=== PATIENT | female | born 1955 | race Caucasian/White ===

== ENCOUNTER 2018-07-02 13:38 | Inpatient (IN) ==
[2018-07-02 15:32] LABS: Basophils # 0.1 10*3/uL (0.0-0.2); Basophils % 0.7 % (0.0-0.8); Eosinophils # 0.2 10*3/uL (0.0-0.87); Eosinophils % 3.1 % (0.00-10.9); Hemoglobin 10.4 GM/DL (12.0-16.0); Immature Granulocytes % 0.6 %; Immature Granulocytes Absolute 0.04 #; Lymphocytes # 1.4 10*3/uL (1.4-4.0); Lymphocytes % 20.7 % (21.3-54.2); Mean Corpuscular HGB Conc 29.7 GM/DL (32-36); Mean Corpuscular Hemoglobin 27 PG (27-34); Mean Corpuscular Volume 92.1 FL (87-102); Mean Platelet Volume 9.5 FL (9.6-12.0); Monocytes # 0.6 10*3/uL (0.11-0.8); Monocytes % 8.3 % (1.7-12.7); Neutrophils # 4.6 10*3/uL (1.4-7.4); Neutrophils % 66.6 % (38.7-73.9); Platelet Count 248 T/CUMM (130-400); Red Cell Distribution Width 14.8 % (9.3-17.3); White Blood Count 6.9 T/CUMM (4-12)
[2018-07-02 15:50] LABS: Calcium 9.1 MG/DL (8.5-10.1); Osmolality,Calculated 294.1 MOS/KG (273-304)
[2018-07-02] MEDS ORDERED: LACTULOSE 20 GM/30 ML UDCUP PO PRN (18:49)
[2018-07-02] MEDS ORDERED: DOCUSATE SODIUM 100 MG CAPSULE PO PRN (18:49)
[2018-07-02] MEDS ORDERED: traZODone 50 MG TABLET PO PRN (18:49)
[2018-07-02] MEDS ORDERED: DEXTROSE 50% 25 GM/50 ML VIAL IV PRN (18:49)
[2018-07-02] MEDS ORDERED: ACETAMINOPHEN 325 MG TABLET PO PRN (18:49)
[2018-07-02] MEDS ORDERED: GLUCAGON 1 MG VIAL IM PRN (18:49)
[2018-07-02] MEDS ORDERED: ONDANSETRON 4 MG/2 ML VIAL IV PRN (18:49)
[2018-07-02] MEDS ORDERED: NITROGLYCERIN SL 0.4 MG TABLET SL PRN (18:53)
[2018-07-02] MEDS: FUROSEMIDE 40 MG/4 ML VIAL IV SCH (21:46)
[2018-07-02] MEDS: GLIMEPIRIDE 2 MG TABLET PO SCH (21:48)
[2018-07-02] MEDS: INSULIN LISPRO 100 UNIT/ML SUBCUT SCH (21:48)
[2018-07-02] MEDS: ceFAZolin 1,000 MG in SYRINGE 1 EACH IV SCH (21:48)
[2018-07-02] MEDS: AMIODARONE 200 MG TABLET PO SCH (21:48)
[2018-07-03] MEDS: ceFAZolin 1,000 MG in SYRINGE 1 EACH IV SCH ×3 (05:09→21:01)
[2018-07-03 05:36] LABS: Basophils % 0.6 % (0.0-0.8); Eosinophils # 0.2 10*3/uL (0.0-0.87); Eosinophils % 2.4 % (0.00-10.9); Hematocrit 32.1 VOL% (35.7-47.0); Hemoglobin 9.6 GM/DL (12.0-16.0); Immature Granulocytes % 0.5 %; Immature Granulocytes Absolute 0.03 #; Lymphocytes # 1.3 10*3/uL (1.4-4.0); Lymphocytes % 20.1 % (21.3-54.2); Mean Corpuscular HGB Conc 29.9 GM/DL (32-36); Mean Corpuscular Hemoglobin 27 PG (27-34); Mean Corpuscular Volume 91.7 FL (87-102); Monocytes # 0.6 10*3/uL (0.11-0.8); Monocytes % 9.1 % (1.7-12.7); Neutrophils # 4.5 10*3/uL (1.4-7.4); Neutrophils % 67.3 % (38.7-73.9); Platelet Count 231 T/CUMM (130-400); Red Cell Distribution Width 14.8 % (9.3-17.3); White Blood Count 6.6 T/CUMM (4-12)
[2018-07-03 06:24] LABS: Calcium 8.8 MG/DL (8.5-10.1); Osmolality,Calculated 285.1 MOS/KG (273-304); Potassium 3.9 MMOL/L (3.5-5.1); Thyroid Stimulating Hormone 2.06 uIU/ml (0.358-3.74)
[2018-07-03] MEDS ORDERED: ENOXAPARIN 40 MG/0.4 ML SYRINGE SUBCUT SCH (09:00)
[2018-07-03] MEDS: RIVAROXABAN 20 MG TABLET PO SCH (09:45)
[2018-07-03] MEDS: ROSUVASTATIN 10 MG TABLET PO SCH (09:45)
[2018-07-03] MEDS: GLIMEPIRIDE 2 MG TABLET PO SCH ×2 (09:45→21:01)
[2018-07-03] MEDS: LISINOPRIL 10 MG TABLET PO SCH (09:45)
[2018-07-03] MEDS: AMIODARONE 200 MG TABLET PO SCH ×2 (09:45→21:01)
[2018-07-03] MEDS: ASPIRIN EC 81 MG TABLET PO SCH (09:45)
[2018-07-03] MEDS: FUROSEMIDE 40 MG/4 ML VIAL IV SCH ×2 (09:45→21:01)
[2018-07-03] MEDS: CHOLECALCIFEROL 1,000 UNIT TABLET PO SCH (09:49)
[2018-07-03] MEDS: INSULIN LISPRO 100 UNIT/ML SUBCUT SCH ×3 (12:47→16:18)
[2018-07-03] MEDS: INSULIN GLARGINE 100 UNIT/ML SUBCUT SCH (12:48)
[2018-07-04] MEDS: INSULIN LISPRO 100 UNIT/ML SUBCUT SCH ×3 (01:21→11:21)
[2018-07-04] MEDS: ceFAZolin 1,000 MG in SYRINGE 1 EACH IV SCH ×2 (04:53→14:11)
[2018-07-04] MEDS: AMIODARONE 200 MG TABLET PO SCH (08:11)
[2018-07-04] MEDS: LISINOPRIL 10 MG TABLET PO SCH (08:11)
[2018-07-04] MEDS: FUROSEMIDE 40 MG/4 ML VIAL IV SCH (08:11)
[2018-07-04] MEDS: CHOLECALCIFEROL 1,000 UNIT TABLET PO SCH (08:11)
[2018-07-04] MEDS: ASPIRIN EC 81 MG TABLET PO SCH (08:11)
[2018-07-04] MEDS: RIVAROXABAN 20 MG TABLET PO SCH (08:11)
[2018-07-04] MEDS: GLIMEPIRIDE 2 MG TABLET PO SCH (08:11)
[2018-07-04] MEDS: ROSUVASTATIN 10 MG TABLET PO SCH (08:11)
[2018-07-04] MEDS: INSULIN GLARGINE 100 UNIT/ML SUBCUT SCH (10:15)
[2018-07-04 16:30] VITALS: BP 146/66
== END 2018-07-04 16:39 | disposition home or self-care (01) | DRG 602 ==
LOC: N.ED 13:38 → N.EDINP 18:49 → N.5E 19:46
PROVIDERS: ADMIT Hospitalist; ATTEND Hospitalist

== ENCOUNTER 2020-03-09 14:05 | Inpatient (IN) ==
[2020-03-09 15:27] LABS: Basophils # 0.1 10*3/uL (0.0-0.2); Basophils % 1.1 % (0.0-0.8); Eosinophils # 0.1 10*3/uL (0.0-0.87); Eosinophils % 1.7 % (0.00-10.9); Hemoglobin 10.1 GM/DL (12.0-16.0); Immature Granulocytes % 0.6 %; Immature Granulocytes Absolute 0.03 #; Lymphocytes # 0.8 10*3/uL (1.4-4.0); Lymphocytes % 15.9 % (21.3-54.2); Mean Corpuscular HGB Conc 30.6 GM/DL (32-36); Mean Corpuscular Volume 85.7 FL (87-102); Monocytes % 8.8 % (1.7-12.7); Neutrophils % 71.9 % (38.7-73.9); Platelet Count 208 T/CUMM (130-400); Red Blood Count 3.85 MC/CUMM (3.8-5.5); Red Cell Distribution Width 15.1 % (9.3-17.3); White Blood Count 5.2 T/CUMM (4-12)
[2020-03-09 15:39] LABS: Calcium 8.6 MG/DL (8.5-10.1); Osmolality,Calculated 282.1 MOS/KG (273-304)
[2020-03-09] MEDS ORDERED: SIMETHICONE CHEW 125 MG TABLET PO PRN (16:15)
[2020-03-09] MEDS ORDERED: diphenhydrAMINE CAP 25 MG CAPSULE PO PRN (16:15)
[2020-03-09] MEDS ORDERED: guaiFENesin/DM ER 600-30 MG TABLET PO PRN (16:15)
[2020-03-09] MEDS ORDERED: NICOTINE 21 MG/24 HR PATCH TRANSDERM PRN (16:15)
[2020-03-09] MEDS ORDERED: CALCIUM CARBONATE CHEW 500 MG TABLET PO PRN (16:15)
[2020-03-09] MEDS ORDERED: ALUMINUM/MAGNES/SIMETH MAX STR 30 ML UDCUP PO PRN (16:15)
[2020-03-09] MEDS ORDERED: PROMETHAZINE 25 MG/1 ML VIAL IM PRN (16:15)
[2020-03-09] MEDS ORDERED: ACETAMINOPHEN 325 MG TABLET PO PRN (16:15)
[2020-03-09] MEDS ORDERED: MORPHINE 4 MG/1 ML VIAL IV PRN (16:15)
[2020-03-09] MEDS ORDERED: GLUCAGON 1 MG VIAL IM PRN (16:15)
[2020-03-09] MEDS ORDERED: DEXTROSE 50% 25 GM/50 ML VIAL IV PRN (16:15)
[2020-03-09] MEDS ORDERED: ZALEPLON 5 MG CAPSULE PO PRN (16:15)
[2020-03-09] MEDS ORDERED: ALBUTEROL 2.5 MG/3 ML NEB RESP TX PRN (16:15)
[2020-03-09] MEDS ORDERED: NITROGLYCERIN SL 0.4 MG TABLET SL PRN (16:19)
[2020-03-09 16:45] LABS: INR 1.7; Partial Thromboplastin Time 38.3 SECS (23.9-33.8)
[2020-03-09] MEDS: INSULIN LISPRO 100 UNIT/ML SUBCUT SCH ×2 (18:04→21:46)
[2020-03-09] MEDS: SODIUM CHLORIDE 0.9% 1,000 ML IV SCH (18:24)
[2020-03-09] MEDS: DOCUSATE SODIUM 100 MG CAPSULE PO SCH (21:45)
[2020-03-09] MEDS: GLIMEPIRIDE 2 MG TABLET PO SCH (21:45)
[2020-03-09] MEDS: AMIODARONE 200 MG TABLET PO SCH (21:46)
[2020-03-09] MEDS: ONDANSETRON 4 MG/2 ML VIAL IV PRN (21:50)
[2020-03-10 06:29] LABS: Basophils % 0.7 % (0.0-0.8); Eosinophils % 0.3 % (0.00-10.9); Hematocrit 27.7 VOL% (35.7-47.0); Immature Granulocytes % 0.7 %; Immature Granulocytes Absolute 0.04 #; Lymphocytes % 16.1 % (21.3-54.2); Mean Corpuscular Volume 86.6 FL (87-102); Mean Platelet Volume 10.4 FL (9.6-12.0); Neutrophils % 67.2 % (38.7-73.9); Platelet Count 208 T/CUMM (130-400); Red Cell Distribution Width 15.5 % (9.3-17.3)
[2020-03-10 06:31] LABS: Hemoglobin 8.3 GM/DL (12.0-16.0)
[2020-03-10 06:46] LABS: Calcium 8.3 MG/DL (8.5-10.1); Osmolality,Calculated 287.7 MOS/KG (273-304)
[2020-03-10] MEDS ORDERED: SODIUM CHLORIDE 0.9% 500 ML IV ONE (07:23)
[2020-03-10] MEDS ORDERED: SODIUM POLYSTYRENE SULFATE 15 GM/60 ML BOTTLE PO STA (07:23)
[2020-03-10 07:54] LABS: Anisocytosis 1+; Band Neutrophils 1 % (0-10); Eosinophils 1 % (0-10); Hypochromasia 2+; Lymphocytes 17 % (20-55); Macrocytosis 1+; Platelet Estimate Normal; Segmented Neutrophils 70 % (50-85); Total Cells Counted 100
[2020-03-10] MEDS: INSULIN LISPRO 100 UNIT/ML SUBCUT SCH ×4 (08:08→21:05)
[2020-03-10] MEDS: ONDANSETRON 4 MG/2 ML VIAL IV PRN (08:33)
[2020-03-10] MEDS ORDERED: POTASSIUM CHLORIDE 10 MEQ TABLET PO SCH (09:00)
[2020-03-10] MEDS ORDERED: CALCIUM GLUCONATE 1,000 MG in SODIUM CHLORIDE 0.9% 100 ML IV ONE (09:00)
[2020-03-10] MEDS ORDERED: CHOLECALCIFEROL 1,000 UNIT TABLET PO SCH (09:00)
[2020-03-10] MEDS ORDERED: FUROSEMIDE 20 MG TABLET PO SCH (09:00)
[2020-03-10] MEDS: GLIMEPIRIDE 2 MG TABLET PO SCH ×2 (10:28→21:04)
[2020-03-10] MEDS: ASPIRIN EC 81 MG TABLET PO SCH (10:29)
[2020-03-10] MEDS: PANTOPRAZOLE 40 MG TABLET PO SCH (10:29)
[2020-03-10] MEDS: DOCUSATE SODIUM 100 MG CAPSULE PO SCH ×2 (10:29→21:04)
[2020-03-10] MEDS: INSULIN GLARGINE 100 UNIT/ML SUBCUT SCH (10:29)
[2020-03-10] MEDS: ROSUVASTATIN 20 MG TABLET PO SCH (10:29)
[2020-03-10] MEDS: AMIODARONE 200 MG TABLET PO SCH ×2 (10:29→21:04)
[2020-03-10] MEDS: SODIUM CHLORIDE 0.9% 1,000 ML IV SCH (10:41)
[2020-03-10] MEDS ORDERED: ERGOCALCIFEROL 50,000 UNIT CAPSULE PO SCH (11:00)
[2020-03-10] MEDS: CALCIUM (CITRATE)/VITAMIN D 200 MG-125 UNIT TABLET PO SCH (21:04)
[2020-03-11 06:05] LABS: Basophils % 0.5 % (0.0-0.8); Eosinophils # 0.1 10*3/uL (0.0-0.87); Hematocrit 27.5 VOL% (35.7-47.0); Hemoglobin 8.1 GM/DL (12.0-16.0); Immature Granulocytes % 0.8 %; Immature Granulocytes Absolute 0.05 #; Lymphocytes # 0.8 10*3/uL (1.4-4.0); Lymphocytes % 13.9 % (21.3-54.2); Mean Corpuscular HGB Conc 29.5 GM/DL (32-36); Mean Corpuscular Volume 87.9 FL (87-102); Mean Platelet Volume 10.3 FL (9.6-12.0); Monocytes % 13.9 % (1.7-12.7); Neutrophils % 69.9 % (38.7-73.9); Platelet Count 183 T/CUMM (130-400); Red Blood Count 3.13 MC/CUMM (3.8-5.5); Red Cell Distribution Width 14.8 % (9.3-17.3)
[2020-03-11 06:39] LABS: Band Neutrophils 5 % (0-10); Eosinophils 2 % (0-10); Hypochromasia 1+; Lymphocytes 3 % (20-55); Microcytosis Slight; Ovalocytes Slight; Platelet Estimate Adequate; Segmented Neutrophils 80 % (50-85); Total Cells Counted 100
[2020-03-11 06:43] LABS: Calcium 8.7 MG/DL (8.5-10.1); Osmolality,Calculated 279.4 MOS/KG (273-304)
[2020-03-11] MEDS: SODIUM CHLORIDE 0.9% 1,000 ML IV SCH (06:53)
[2020-03-11 06:54] LABS: Calcium 8.6 MG/DL (8.5-10.1); Osmolality,Calculated 278.5 MOS/KG (273-304)
[2020-03-11] MEDS: INSULIN LISPRO 100 UNIT/ML SUBCUT SCH ×4 (07:32→21:18)
[2020-03-11] MEDS: INSULIN GLARGINE 100 UNIT/ML SUBCUT SCH (07:32)
[2020-03-11] MEDS ORDERED: SODIUM CHLORIDE 0.9% 1,000 ML IV PRN (08:05)
[2020-03-11] MEDS: ROSUVASTATIN 20 MG TABLET PO SCH (08:35)
[2020-03-11] MEDS: GLIMEPIRIDE 2 MG TABLET PO SCH ×2 (08:35→21:18)
[2020-03-11] MEDS: AMIODARONE 200 MG TABLET PO SCH ×2 (08:35→21:17)
[2020-03-11] MEDS: DOCUSATE SODIUM 100 MG CAPSULE PO SCH ×2 (08:35→21:17)
[2020-03-11] MEDS: ASPIRIN EC 81 MG TABLET PO SCH (08:35)
[2020-03-11] MEDS: CALCIUM (CITRATE)/VITAMIN D 200 MG-125 UNIT TABLET PO SCH ×2 (08:36→21:17)
[2020-03-11] MEDS: PANTOPRAZOLE 40 MG TABLET PO SCH (08:36)
[2020-03-11] MEDS ORDERED: ENOXAPARIN 60 MG/0.6 ML SYRINGE SUBCUT SCH (10:30)
[2020-03-11] MEDS: hydrALAZINE 20 MG/1 ML VIAL IV PRN (10:32)
[2020-03-11] MEDS ORDERED: ENOXAPARIN 40 MG/0.4 ML SYRINGE SUBCUT SCH (12:00)
[2020-03-12] MEDS: hydrALAZINE 20 MG/1 ML VIAL IV PRN (02:36)
[2020-03-12 05:26] LABS: Basophils % 0.6 % (0.0-0.8); Eosinophils # 0.1 10*3/uL (0.0-0.87); Eosinophils % 0.7 % (0.00-10.9); Hematocrit 37.5 VOL% (35.7-47.0); Immature Granulocytes Absolute 0.07 #; Lymphocytes # 0.9 10*3/uL (1.4-4.0); Lymphocytes % 11.8 % (21.3-54.2); Mean Corpuscular HGB Conc 32.3 GM/DL (32-36); Mean Corpuscular Volume 86.2 FL (87-102); Mean Platelet Volume 9.8 FL (9.6-12.0); Monocytes % 11.8 % (1.7-12.7); Neutrophils % 74.1 % (38.7-73.9); Platelet Count 186 T/CUMM (130-400); Red Cell Distribution Width 14.4 % (9.3-17.3); White Blood Count 7.2 T/CUMM (4-12)
[2020-03-12 05:27] LABS: Red Blood Count 4.35 MC/CUMM (3.8-5.5)
[2020-03-12 05:28] LABS: Hemoglobin 12.1 GM/DL (12.0-16.0)
[2020-03-12 05:32] LABS: Band Neutrophils 4 % (0-10); Hypochromasia 1+; Lymphocytes 14 % (20-55); Microcytosis Slight; Platelet Estimate Adequate; Segmented Neutrophils 75 % (50-85); Total Cells Counted 100
[2020-03-12 05:33] LABS: Calcium 8.6 MG/DL (8.5-10.1); Osmolality,Calculated 271.7 MOS/KG (273-304)
[2020-03-12] MEDS ORDERED: MAGNESIUM SULF RIDER 2 GM in PREMIX 1 EACH IV PRN (07:01)
[2020-03-12] MEDS ORDERED: MAGNESIUM SULF RIDER 4 GM in PREMIX 1 EACH IV PRN (07:01)
[2020-03-12] MEDS ORDERED: DEXTROSE 50% 25 GM/50 ML VIAL IV ONE (07:01)
[2020-03-12] MEDS ORDERED: ceFAZolin 1,000 MG VIAL ONE (07:27)
[2020-03-12] MEDS ORDERED: LACTATED RINGERS 1,000 ML IV SCH (07:30)
[2020-03-12] MEDS ORDERED: GENTAMICIN 80 MG/2 ML VIAL ONE (07:37)
[2020-03-12] MEDS ORDERED: BISACODYL 10 MG SUPP RECTAL PRN (08:43)
[2020-03-12] MEDS ORDERED: LACTULOSE 20 GM/30 ML UDCUP PO PRN (08:43)
[2020-03-12] MEDS ORDERED: MAGNESIUM HYDROXIDE SUSP 30 ML UDCUP PO PRN (08:43)
[2020-03-12] MEDS ORDERED: MORPHINE 4 MG/1 ML VIAL IV PRN ×2 (08:46→08:55)
[2020-03-12] MEDS ORDERED: propofoL 200 MG/20 ML VIAL IV ONE (08:57)
[2020-03-12] MEDS ORDERED: LIDOCAINE 2% 5 ML VIAL ONE (08:57)
[2020-03-12] MEDS ORDERED: fentaNYL 100 MCG/2 ML VIAL ONE (08:58)
[2020-03-12] MEDS ORDERED: MIDAZOLAM 2 MG/2 ML VIAL ONE (08:58)
[2020-03-12] MEDS ORDERED: ONDANSETRON 4 MG/2 ML VIAL ONE (08:59)
[2020-03-12] MEDS ORDERED: PHENYLEPHRINE 1 MG/10 ML SYRINGE IV ONE (08:59)
[2020-03-12] MEDS ORDERED: ePHEDrine 50 MG/ML VIAL ONE (08:59)
[2020-03-12] MEDS ORDERED: DEXAMETHASONE 4 MG/1 ML VIAL ONE (08:59)
[2020-03-12] MEDS ORDERED: SEVOFLURANE 1 UNIT/15 MINUTE INH ONE (08:59)
[2020-03-12] MEDS ORDERED: KETOROLAC 30 MG/1 ML VIAL ONE (08:59)
[2020-03-12] MEDS ORDERED: SUCCINYLCHOLINE 200 MG/10 ML VIAL ONE (08:59)
[2020-03-12] MEDS ORDERED: LACTATED RINGERS 1,000 ML IV ONE (09:00)
[2020-03-12] MEDS ORDERED: ROCURONIUM 100 MG/10 ML VIAL IV ONE (09:00)
[2020-03-12] MEDS: INSULIN LISPRO 100 UNIT/ML SUBCUT SCH ×4 (09:42→20:47)
[2020-03-12] MEDS: ASPIRIN EC 81 MG TABLET PO SCH ×2 (09:44→10:02)
[2020-03-12] MEDS: GLIMEPIRIDE 2 MG TABLET PO SCH ×2 (10:00→20:47)
[2020-03-12] MEDS: CALCIUM (CITRATE)/VITAMIN D 200 MG-125 UNIT TABLET PO SCH ×2 (10:00→20:46)
[2020-03-12] MEDS: DOCUSATE SODIUM 100 MG CAPSULE PO SCH ×2 (10:00→20:46)
[2020-03-12] MEDS: PANTOPRAZOLE 40 MG TABLET PO SCH (10:01)
[2020-03-12] MEDS: RIVAROXABAN 20 MG TABLET PO SCH (10:01)
[2020-03-12] MEDS: AMIODARONE 200 MG TABLET PO SCH ×2 (10:01→20:46)
[2020-03-12] MEDS: ROSUVASTATIN 20 MG TABLET PO SCH (10:01)
[2020-03-12] MEDS: INSULIN GLARGINE 100 UNIT/ML SUBCUT SCH (10:02)
[2020-03-12] MEDS: ceFAZolin 1,000 MG in SYRINGE 1 EACH IV SCH ×2 (13:29→22:54)
[2020-03-13 05:25] LABS: Basophils % 0.3 % (0.0-0.8); Eosinophils # 0.1 10*3/uL (0.0-0.87); Eosinophils % 1.5 % (0.00-10.9); Hematocrit 33.3 VOL% (35.7-47.0); Immature Granulocytes % 0.5 %; Immature Granulocytes Absolute 0.03 #; Lymphocytes # 0.9 10*3/uL (1.4-4.0); Lymphocytes % 14.2 % (21.3-54.2); Mean Corpuscular Volume 85.8 FL (87-102); Mean Platelet Volume 9.8 FL (9.6-12.0); Monocytes % 13.7 % (1.7-12.7); Neutrophils % 69.8 % (38.7-73.9); Platelet Count 189 T/CUMM (130-400); Red Blood Count 3.88 MC/CUMM (3.8-5.5); Red Cell Distribution Width 14.9 % (9.3-17.3); White Blood Count 6.5 T/CUMM (4-12)
[2020-03-13] MEDS: ceFAZolin 1,000 MG in SYRINGE 1 EACH IV SCH (05:29)
[2020-03-13 05:49] LABS: Band Neutrophils 4 % (0-10); Lymphocytes 12 % (20-55); Segmented Neutrophils 73 % (50-85); Total Cells Counted 100
[2020-03-13 05:50] LABS: Hypochromasia 1+; Microcytosis Slight; Platelet Estimate Adequate
[2020-03-13 06:03] LABS: Calcium 8.1 MG/DL (8.5-10.1)
[2020-03-13] MEDS: INSULIN GLARGINE 100 UNIT/ML SUBCUT SCH (08:42)
[2020-03-13] MEDS: INSULIN LISPRO 100 UNIT/ML SUBCUT SCH ×4 (08:42→21:36)
[2020-03-13] MEDS: GLIMEPIRIDE 2 MG TABLET PO SCH (08:43)
[2020-03-13] MEDS: AMIODARONE 200 MG TABLET PO SCH ×2 (09:53→21:35)
[2020-03-13] MEDS: lisinopriL 10 MG TABLET PO SCH (09:53)
[2020-03-13] MEDS: RIVAROXABAN 20 MG TABLET PO SCH (09:53)
[2020-03-13] MEDS: DOCUSATE SODIUM 100 MG CAPSULE PO SCH ×2 (09:53→21:35)
[2020-03-13] MEDS: PANTOPRAZOLE 40 MG TABLET PO SCH (09:53)
[2020-03-13] MEDS: ROSUVASTATIN 20 MG TABLET PO SCH (09:53)
[2020-03-13] MEDS: CALCIUM (CITRATE)/VITAMIN D 200 MG-125 UNIT TABLET PO SCH ×2 (09:53→21:35)
[2020-03-13] MEDS: ASPIRIN EC 81 MG TABLET PO SCH (09:54)
[2020-03-13 10:18] LABS: Albumin 2.1 G/DL (3.4-5.0); Bilirubin,Direct 0.18 MG/DL (0.0-0.20); Bilirubin,Indirect 0.3 MG/DL (0.0-1.0); Bilirubin,Total 0.5 MG/DL (0.2-1.0); Total Protein 5.8 G/DL (6.4-8.3)
[2020-03-14 06:48] LABS: Basophils % 0.7 % (0.0-0.8); Eosinophils # 0.1 10*3/uL (0.0-0.87); Hematocrit 34.4 VOL% (35.7-47.0); Hemoglobin 10.9 GM/DL (12.0-16.0); Immature Granulocytes % 0.2 %; Immature Granulocytes Absolute 0.01 #; Lymphocytes # 0.7 10*3/uL (1.4-4.0); Lymphocytes % 12.3 % (21.3-54.2); Mean Corpuscular HGB Conc 31.7 GM/DL (32-36); Mean Platelet Volume 9.6 FL (9.6-12.0); Neutrophils % 71.8 % (38.7-73.9); Platelet Count 185 T/CUMM (130-400); Red Blood Count 3.91 MC/CUMM (3.8-5.5); Red Cell Distribution Width 15.2 % (9.3-17.3); White Blood Count 5.6 T/CUMM (4-12)
[2020-03-14 07:13] LABS: Band Neutrophils 1 % (0-10); Eosinophils 2 % (0-10); Hypochromasia 1+; Lymphocytes 12 % (20-55); Microcytosis 1+; Platelet Estimate Adequate; Segmented Neutrophils 79 % (50-85); Total Cells Counted 100
[2020-03-14] MEDS: RIVAROXABAN 20 MG TABLET PO SCH (09:57)
[2020-03-14] MEDS: CALCIUM (CITRATE)/VITAMIN D 200 MG-125 UNIT TABLET PO SCH ×2 (09:57→21:30)
[2020-03-14] MEDS: ROSUVASTATIN 20 MG TABLET PO SCH (09:57)
[2020-03-14] MEDS: AMIODARONE 200 MG TABLET PO SCH ×2 (09:57→21:30)
[2020-03-14] MEDS: lisinopriL 10 MG TABLET PO SCH (09:57)
[2020-03-14] MEDS: ASPIRIN EC 81 MG TABLET PO SCH (09:58)
[2020-03-14] MEDS: PANTOPRAZOLE 40 MG TABLET PO SCH (09:58)
[2020-03-14] MEDS: DOCUSATE SODIUM 100 MG CAPSULE PO SCH ×2 (09:58→21:30)
[2020-03-14] MEDS: INSULIN GLARGINE 100 UNIT/ML SUBCUT SCH (10:39)
[2020-03-14] MEDS: INSULIN LISPRO 100 UNIT/ML SUBCUT SCH ×4 (10:39→21:33)
[2020-03-15 06:26] LABS: Basophils % 0.5 % (0.0-0.8); Eosinophils # 0.1 10*3/uL (0.0-0.87); Eosinophils % 1.4 % (0.00-10.9); Hematocrit 32.8 VOL% (35.7-47.0); Hemoglobin 10.5 GM/DL (12.0-16.0); Immature Granulocytes % 0.5 %; Immature Granulocytes Absolute 0.03 #; Lymphocytes # 0.6 10*3/uL (1.4-4.0); Lymphocytes % 9.7 % (21.3-54.2); Mean Platelet Volume 9.9 FL (9.6-12.0); Monocytes % 13.8 % (1.7-12.7); Neutrophils % 74.1 % (38.7-73.9); Platelet Count 190 T/CUMM (130-400); Red Blood Count 3.77 MC/CUMM (3.8-5.5); Red Cell Distribution Width 15.2 % (9.3-17.3); White Blood Count 5.8 T/CUMM (4-12)
[2020-03-15 07:31] LABS: Band Neutrophils 6 % (0-10); Eosinophils 2 % (0-10); Lymphocytes 3 % (20-55); Segmented Neutrophils 76 % (50-85); Total Cells Counted 100
[2020-03-15 07:33] LABS: Hypochromasia 2+; Ovalocytes Few; Platelet Estimate Normal; Polychromasia Slight
[2020-03-15] MEDS: INSULIN LISPRO 100 UNIT/ML SUBCUT SCH ×2 (07:57→12:20)
[2020-03-15] MEDS: INSULIN GLARGINE 100 UNIT/ML SUBCUT SCH (08:10)
[2020-03-15] MEDS: ROSUVASTATIN 20 MG TABLET PO SCH (09:07)
[2020-03-15] MEDS: ASPIRIN EC 81 MG TABLET PO SCH (09:07)
[2020-03-15] MEDS: CALCIUM (CITRATE)/VITAMIN D 200 MG-125 UNIT TABLET PO SCH (09:07)
[2020-03-15] MEDS: PANTOPRAZOLE 40 MG TABLET PO SCH (09:08)
[2020-03-15] MEDS: lisinopriL 10 MG TABLET PO SCH (09:08)
[2020-03-15] MEDS: AMIODARONE 200 MG TABLET PO SCH (09:08)
[2020-03-15] MEDS: RIVAROXABAN 20 MG TABLET PO SCH (09:08)
[2020-03-15] MEDS: DOCUSATE SODIUM 100 MG CAPSULE PO SCH (09:08)
[2020-03-15 12:12] VITALS: BP 151/48
== END 2020-03-15 13:00 | DRG 493 ==
LOC: EDUNIT# → EDBD → N.ED 14:05 → SUATTDRO 16:15 → N.EDINP 16:15 → N.3E 16:46
PROVIDERS: ADMIT Internal Medicine; ATTEND Internal Medicine